=== PATIENT | female | born 1955 | race Caucasian/White ===

== ENCOUNTER 2017-04-28 08:20 | Day surgery (SDC) | payer OTHER ==
[~2017-04-28 08:20] MED LIST: B-125000 MCG/1 SL; LOTREL 5-20 MG1 CAP PO; SINGULAIR10 MG PO; ZOCOR20 MG PO; [UNRECOGNIZED DRUG - OTHER] PO
[2017-04-28] MEDS ORDERED: PERCOCET 5-3251 EACH PO (13:34)
== END 2017-04-28 16:05 | disposition home or self-care (01) ==
LOC: CIR.AMB 08:20
DX: N72 Inflammatory disease of cervix uteri (principal)